=== PATIENT | male | born 1985 | race Caucasian/White ===

== ENCOUNTER 2016-11-04 01:52 | Emergency (ER) | payer OTHER ==
[~2016-11-04] VITALS: Ht 185.4 cm; Wt 68.1 kg
[2016-11-04 01:52] VITALS: Ht 185.4 cm; Wt 68.1 kg
[~2016-11-04 01:52] MED LIST: HYDR-4246 PO
--- OUTSIDE RECORDS SUMMARY | 2016-11-04 01:56 | XMS REPORT | Continuity of Care Document ---
Author Author [facility] Organization [facility] Address Unknown Phone Unavailable Support Name Relationship Address Phone YURIDIA KENNEDY Next Of Kin [address] [place] [address] Unavailable Insurance Providers Payer Name Policy Number Subscriber Name Relationship [facility] [id number] Sam Lara Ii 19 Self Problems No Known Problems or Medical conditions. Family History History Response Recorded Date/Time Hx Abdominal Surgery Y appendectomy and gall bladder removal 02/10/13 11:06pm HX Cerebrovascular Accident N 02/10/13 11:06pm Hx Seizures N 02/10/13 11:06pm Hx Angina N 02/10/13 11:06pm Hx Congestive Heart Failure N 02/10/13 11:06pm Hx Heart Attack N 02/10/13 11:06pm Hx Hypertension N 02/10/13 11:06pm Hx Chronic Obstructive Pulmonary Disease (COPD) N 02/10/13 11:06pm Hx Diabetes N 02/10/13 11:06pm Hx Cancer N 02/10/13 11:06pm Hx MRSA Y mrsa foot wound 03/01/09 02/10/13 11:06pm HX of Cardiac Surgeries N 02/10/13 11:06pm HX of Reproductive Surgeries N 02/10/13 11:06pm HX of Endocrine Surgeries N 02/10/13 11:06pm HX of Neurological Surgeries N 02/10/13 11:06pm HX of Genitourinary Surgeries N 02/10/13 11:06pm Infectious abscesses 05/17/11 7:11am Neurological head injury 05/17/11 7:11am Respiratory asthma 05/17/11 7:11am Social History History Response Recorded Date/Time Smoking Status Current every day smoker 02/10/13 11:06pm Hx Substance Use N 02/10/13 11:06pm Hx Alcohol Use Y 02/10/13 11:06pm Allergies, Adverse Reactions, Alerts Allergen Type Severity Reaction Last Updated iodine Adverse Reaction Unknown 02/10/13 aspirin Allergy Severe 02/10/13 Medications Medication Dose Units Route Sig Qty Days Trazodone Hcl 100 Mg PO HS Venlafaxine Hcl (Effexor) 37.5 Mg PO DAILY Prazosin Hcl (Minipress) 1 Mg PO DAILY Trazodone Hcl 100 Mg PO HS Venlafaxine Hcl (Effexor Xr) 150 Mg PO DAILY Multivit, Iron, Min #3, Fa ([place] Tablet) PO DAILY Immunizations Name Given Type Hx Influenza Vaccination Y 2007 H Hx Pneumococcal Vaccination Y 2007 H Hx Tetanus, Diptheria, Pertussis Y H Response Recorded Date/Time Status not known Unknown Results No Known Relevant Diagnostic Tests, Laboratory Data and/or Discharge Summary. Procedures Procedure Code Date RPR S/N/AX/GEN/TRNK 2.5CM/< 63150 01/26/09 REMOVAL OF TOE LESIONS 46478 03/16/09 THER/PROPH/DIAG IV INF INIT 01144 05/16/11 TX/PRO/DX INJ NEW DRUG ADDON 38256 05/16/11 Blood Culture 05/16/11 Gram Stain 03/01/09 Encounters Encounter Location Date/Time Departed Emergency Room [facility] 02/10/13 10:59pm
--- OUTSIDE RECORDS SUMMARY | 2016-11-04 01:56 | XMS REPORT | Continuity of Care Document ---
Author Author [facility] Organization [facility] Address Unknown Phone Unavailable Support Name Relationship Address Phone NOVEMBER, FARNAZ Cox DO Caregiver [address] [place] [address] Unavailable LATIA CANDELARIA FACS, MD Caregiver [address] [place] [address] [place] [address] Unavailable LATIA CANDELARIA FACS, MD Caregiver [address] [place] [address] [place] [address] Unavailable YURIDIA KENNEDY Next Of Kin [address] [place] [address] Insurance Providers Guarantor Quentin Lara Ii Address [address] [place] [address] Email DENIED/NO PORTAL Payer [facility] Policy Number [id number] Subscriber's Name Quentin Lara Ii Relationship 19 Self Advance Directives Directive Response Recorded Date/Time Ordered Resuscitation Status Full Code 05/12/16 4:11am Resuscitation Documents on File No 05/12/16 4:43am DPOA for Healthcare Only No 05/12/16 4:43am Living Will No 05/12/16 4:43am Chief Complaint and Reason for Visit Chief Complaint HERNIA PAIN Reason for Visit Incarcerated hernia Problems Active Problems Medical Problem Onset Date Status Incarcerated hernia Unknown Acute Medications Current Home Medications Medication Dose Units Route Directions Days Qty Instructions Start Date Hydrocodone/Acetaminophen (Whipple 5-325 Tablet) 5-325 Tablet 1-2 Tab Oral Every 5 Hours as needed for Pain 30 Tablet 05/12/16 Past Home Medications Medication Directions Ordered Status Duloxetine Hcl (Cymbalta) 20 Mg Capsule., 20 Mg Oral Daily 05/06/11 Discontinued Multivit, Iron, Min #3, Fa ([place] Tablet) 1 Tab Tablet, Oral Daily 03/16/09 Discontinued Prazosin Hcl (Minipress) 1 Mg Capsule, 1 Mg Oral Daily 05/16/11 Discontinued Trazodone Hcl 100 Mg Tablet, 100 Mg Oral Bedtime 02/10/13 Discontinued Trazodone Hcl 100 Mg Tablet, 100 Mg Oral Bedtime 05/16/11 Discontinued Venlafaxine Hcl (Effexor) 37.5 Mg Tablet, 37.5 Mg Oral Daily 03/10/12 Discontinued Venlafaxine Hcl (Effexor Xr) 150 Mg Cap.sr.24h, 150 Mg Oral Daily 05/16/11 Discontinued Social History Social History Problem Response Recorded Date/Time Onset Date Status Reason for Hospitalization HERNIA PAIN 05/13/2016 12:19pm Not Applicable Not Applicable Chewing Tobacco Status No 05/12/2016 2:57am Not Applicable Not Applicable Hx Substance Use No 05/12/2016 2:57am Not Applicable Not Applicable Hx Alcohol Use Yes 05/12/2016 2:57am Not Applicable Not Applicable Has the pt used tobacco in the last 12 months Yes 05/12/2016 4:47am Not Applicable Not Applicable Query Response Start Date Stop Date Smoking Status Current every day smoker Hospital Discharge Instructions Instructions: Care Instructions: I was in the hospital because (patient own words): "a hernia" Discharge Diet: TOLERATED Discharge Activity: INCREASE TOLERATED BE SURE TO GET UP AND WALK AROUND EVERY LITTLE BIT EVERY DAY Follow Up Appointments: CALL DR. CANDELARIA'S OFFICE @ [phone] TO SET UP FOLLOW UP APPOINTMENT Pending Lab / Results: No Pending Lab Patient Instructions: SEE HERNIA DISCHARGE PAGES Expected Signs/Symptoms: EXPECT TO FEEL SORE/HAVE PAIN FOR A COUPLE OF DAYS. Notify Physician If: YOU NOTICE SIGNS OF INFECTION: TEMP 101.5 OR GREATER, REDNESS AND/OR SWELLING AT INCISION SITE. GREEN OR FOUL SMELLING DRAINAGE COMING FROM INCISION SITE Pain Scale Utilized to Educate Patient: 0-10 Pain Scale Condition at time of discharge: Good Plan of Care Discharge Date 05/13/16 1:47pm Disposition 01 DISCHARGED HOME, SELF-CARE Instructions/Education Provided DI for Groin Hernia Prescriptions See Medication Section Additional Instructions/Education may shower in 24 hours, limit lifting to less than #25, return to clinic on May 22, call for appointment Care Plan and Goals See Discharge Instructions Section Functional Status Query Response Date Recorded Assistive Devices None May 12, 2016 5:21am Activity Limitations None May 12, 2016 5:21am Feeding Ability Independent May 12, 2016 5:21am Toileting Ability Independent May 12, 2016 5:21am Grooming Ability Independent May 12, 2016 5:21am Dressing Ability Independent May 12, 2016 5:21am Driving Ability Independent May 12, 2016 5:21am Housework Ability Independent May 12, 2016 5:21am Meal Preparation Ability Independent May 12, 2016 5:21am Stair Climbing Ability Independent May 12, 2016 5:21am Ability to complete ADL's impeded by No change May 12, 2016 5:21am Cognitive/Perceptual Impairments None May 12, 2016 5:21am Allergies, Adverse Reactions, Alerts Allergen Type Severity Reaction Status Last Updated Aspirin Allergy Severe Active 05/12/16 Immunizations Immunization Event Date Type Not Given Reason Dose Number Lot Number Chairman Ceo VIS Given Influenza, seasonal, injectable 05/12/16 Administered 1 [id number] Daric 03/09/14 Query Response on File Recorded Date/Time Hx Influenza Vaccination No 05/12/16 4:47am Hx Pneumococcal Vaccination No 05/12/16 4:47am Hx Tetanus, Diptheria, Pertussis Yes 02/10/13 11:06pm Hx Influenza Vaccination No 05/12/16 4:47am Hx Tetanus Diptheria Y A YEAR AGO 02/10/13 11:06pm Hx Tetanus, Diptheria, Pertussis Yes 02/10/13 11:06pm Influenza Vaccine Hx 05/12/16 05/12/16 4:28pm Vital Signs Acute Vital Signs Vital Response Date/Time Temperature (Fahrenheit) 96.5 deg F (96.8 - 99.1) 05/13/2016 12:50pm Temperature (Calculated Celsius) 35.03966 degrees C (36.0 - 37.3) 05/13/2016 12:50pm Temperature Source Oral 05/13/2016 12:50pm Pulse Rate (adult) 88 bpm (60 - 100) 05/13/2016 12:50pm Respiratory Rate 16 breaths/min (10 - 20) 05/13/2016 12:50pm O2 Sat by Pulse Oximetry 97 % (90 - 100) 05/13/2016 12:50pm Oxygen Delivery Method Room Air 05/13/2016 12:50pm Oxygen Delivery Method Room Air 05/12/2016 3:50pm Oxygen Flow Rate 2.00 L/min 05/12/2016 8:45am Blood Pressure 111/65 mm Hg 05/13/2016 12:50pm Blood Pressure Source Automatic Cuff 05/13/2016 12:50pm Height (Feet) 6 feet 05/12/2016 4:41am Height (Inches) 1.00 inches 05/12/2016 4:41am Weight (Kilograms) 75.000 kg 05/13/2016 7:30am Body Mass Index (BMI) 20.9 05/12/2016 4:41am Results Laboratory Results Test Name Result Units Flags Reference Collection Date/Time Result Date/ Time Comments White Blood Count 14.5 T/MM3 H 4.5-11.0 05/12/2016 3:05/12/2016 3: 17am Red Blood Count 5.64 M/MM3 4.50-5.90 05/12/2016 3:05/12/2016 3: 17am Hemoglobin 17.2 GM/DL 13.5-17.5 05/12/2016 3:05/12/2016 3:17am Hematocrit 50.3 % 41-53 05/12/2016 3:05/12/2016 3:17am Mean Corpuscular Volume 89.2 UM3 80-100 05/12/2016 3:05/12/2016 3: 17am Mean Corpuscular Hemoglobin 30.5 UUG 26-34 05/12/2016 3:2015 3:17am Mean Corpuscular Hemoglobin Concent 34.2 GM/DL 31-37 05/12/2016 3:05/12/2016 3:17am RDW Standard Deviation 43.7 FL 36.9-50.2 05/12/2016 3:05/12/2016 3 :17am Platelet Count 320 T/MM3 130-400 05/12/2016 3:05/12/2016 3:17am Mean Platelet Volume 10.4 UM3 9.4-12.4 05/12/2016 3:05/12/2016 3: 17am Prothromb Time International Ratio 0.93 L 0.99-1.21 05/12/2016 3:05/12/2016 4:29am THERAPUTIC RANGE=2.00-3.00 FOR ANTI-THROMBOSIS THERAPUTIC RANGE=2.50-3.50 FOR IMPLANTED VALVE Icterus Index < 2 0-7 05/12/2016 3:0905/12/2016 3:25am Chemistry Specimen Hemolysis < 15 0-25 05/12/2016 3:0905/12/2016 3 :25am 0-25: Specimen Exhibited No Hemolysis. Turbidity < 20 0-20 05/12/2016 3:09am 05/12/2016 3:25am Sodium Level 147 MEQ/L H 134-144 05/12/2016 3:0905/12/2016 3:25am Potassium Level 3.5 MEQ/L L 3.6-5 05/12/2016 3:09am 05/12/2016 3:25am Chloride Level 105 MEQ/L 98-107 05/12/2016 3:0905/12/2016 3:25am Carbon Dioxide Level 29 MEQ/L 22-30 05/12/2016 3:09am 05/12/2016 3: 25am Anion Gap 13 MEQ/L 5-15 05/12/2016 3:0905/12/2016 3:25am Blood Urea Nitrogen < 2.0 MG/DL L 9-05/12/2016 3:09am 05/12/2016 3: 25am Creatinine 0.7 MG/DL L 0.8-1.5 05/12/2016 3:0905/12/2016 3:25am Glomerular Filtration Rate Calc 132 05/12/2016 3:0905/12/2016 3: 25am Glucose Level 102 MG/DL 75-110 05/12/2016 3:0905/12/2016 3:25am Calcium Level 10.1 MG/DL 8.4-10.2 05/12/2016 3:09am 05/12/2016 3:25am Name: QUENTIN LARA II Unit #: [id number] : 1985 Sex: M Admit Date: 05/12/16 Loc / Svc: SRG Discharge Date: DIAGNOSTIC IMAGING REPORT Report #: [id number] [facility] MARLENI [place] Indication: ITS.REASON: Possible incarcerated hernia PROCEDURE: CT ABD/PELVIS W/CONTRAST ONLY: Encounter: Initial Comparison: None Technique: Axial CT images were performed through the abdomen and pelvis after the administration of intravenous contrast. Coronal and sagittal two-dimensional reformats. Contrast: Omnipaque 300 89 mL Findings: Calcified granulomas in the lingula. The liver appears normal. Gallbladder is surgically absent. Granulomas in the spleen. The pancreas and adrenal glands are within normal limits. Kidneys are normal. No abdominal or pelvic lymphadenopathy. Bladder is normal. Prostate and rectum are unremarkable. Colon is decompressed. Dilated small bowel in the central and right lower pelvis secondary to a large right inguinal hernia containing dilated fluid-filled loops of small bowel extending into the right hemiscrotum. One interesting and exiting loop is identified. There is some bowel wall thickening but no definite pneumatosis. No portal or mesenteric venous gas appreciated. Bone windows are unremarkable for age. Impression: Small bowel obstruction due to an incarcerated right inguinal hernia. Possible developing strangulation. No definite evidence of bowel necrosis currently. Surgical consultation is recommended. There is a preliminary report by [facility]. . Procedures Procedure Status Date Provider(s) Inguinal hernia repair, right Completed 05/12/16 LATIA CANDELARIA MD, CORINNA VIDES Encounters Encounter Location Arrival/Admit Date Discharge/Depart Date Attending Provider Admitted Inpatient [facility] 05/12/16 4:11am LATIA CANDELARIA FACS, MD Recent Diagnosis Incarcerated hernia
--- OUTSIDE RECORDS SUMMARY | 2016-11-04 01:56 | XMS REPORT | Continuity of Care Document ---
Author Author [facility] Address Unknown Phone Unavailable Allergies Active Description Code Type Severity Reaction Onset Reported/Identified Relationship to Patient Clinical Status Yes aspirin Drug Allergy N/A N/A 04/30/2013 Yes iodine Drug Allergy N/A N/A 04/30/2013 Medications Problems Date Dx Coded Attending Type Code Diagnosis Diagnosed By 04/30/2013 VAHID NEGRON APRN 724.2 LUMBAGO/ LOW BACK PAIN 04/30/2013 DIANA MARK MD 724.2 LUMBAGO/ LOW BACK PAIN 04/30/2013 VAHID NEGRON APRN 724.2 LUMBAGO/ LOW BACK PAIN 06/16/2013 DIANA MARK MD E880.9 ACCIDENTAL FALL ON OR FROM OTHER STAIRS OR STEPS 06/16/2013 VAHID NEGRON APRN E880.9 ACCIDENTAL FALL ON OR FROM OTHER STAIRS OR STEPS Procedures Code Description [place] [address] UA W/ CULTURE IF INDICATED 04/30/2013 01268 XRAY LUMBAR SPINE 2 OR 3 VIEWS 06/16/2013 55896 X-RAY EXAM OF SACRUM/COCCYX 06/16/2013 37923 URINE DRUG SCREEN (IN-HOUSE) 07/04/2013 75499 UA LONG DIP 07/04 Results Encounters ACCT No. Visit Date/Time Discharge Status Pt. Type Provider Facility Loc./Unit Complaint [id number] 07/04/2013 10:41:00 07/04/2013 23: 59:59 CLS Outpatient VAHID NEGRON APRN [id number] 06/16/2013 09:51:00 06/16/2013 23: 59:59 CLS Outpatient DIANA MARK MD [id number] 04/30/2013 17:26:00 04/30/2013 23: 59:59 CLS Outpatient VAHID NEGRON APRN
[2016-11-04 02:33] LABS: BASOPHILS % (AUTO) 0.2 % (0-2); EOSINOPHILS # (AUTO) 0.1 T/MM3 (0-0.5); EOSINOPHILS % (AUTO) 1.4 % (0-4); HCT - HEMATOCRIT 45.3 % (41-53); LYMPHOCYTES # (AUTO) 1.8 T/MM3 (1-4.8); LYMPHOCYTES % (AUTO) 28.4 % (23-45); MEAN CORPUSCULAR HGB 30.8 UUG (26-34); MEAN CORPUSCULAR HGB CONC(MCHC 35.3 GM/DL (31-37); MEAN CORPUSCULAR VOLUME 87.3 UM3 (80-100); MONOCYTES # (AUTO) 0.7 T/MM3 (0-0.8); MONOCYTES % (AUTO) 10.5 % (0-9.0); NEUTROPHILS #(AUTO)-ABSOLUTE 3.8 T/MM3 (1.8-7.7); NEUTROPHILS % (AUTO) 59.5 % (33-66); RED BLOOD COUNT 5.19 M/MM3 (4.50-5.90); WBC - WHITE BLOOD COUNT 6.4 T/MM3 (4.5-11.0)
--- NOTE | 2016-11-04 02:40 | ERPDOC ---
Departure Disposition Decision Date: Nov 04, 2016 Disposition Decision Time: 05:10 Disposition: 01 DISCHARGED HOME, SELF-CARE Impression Impression Impression: Primary Impression: Methamphetamine abuse Additional Impression: Anxiety Condition: Stable Seen By: Physician only Patient Instructions: Anxiety (ED), Methamphetamine Abuse (ED) Problems/Meds/Labs Reviewed?: Yes Medications reviewed and manag: Yes Additional Instructions: 1) DRINK PLENTY OF WATER AND CONSIDER ELECTROLYTE SOLUTION SUCH GATORADE OR POWERADE. 2) AVOID METHAMPHETAMINE 3) FOLLOW UP WITH [facility] OR PCP OF YOUR CHOICE FOR RE-EVALUATION IN NEXT 2-3 DAYS 4) TAKE POTASSIUM SUPPLEMENT 20 MeQ TAB ONE BY MOUTH THREE TIMES A DAY 5) AVOID ALCOHOL 6) AVOID ANY RECREATIONAL DRUGS Follow up care ordered?: Yes Mental Status: Alert, Oriented Scripts Potassium Chloride (Potassium Chloride) 20 Meq Tablet.er 20 MEQ PO TIDWM, #90 TAB 0 Refills Take 1 tablet, by mouth, THREE times a day with meals. Prov: DEVIN THEODORE MD 11/04/16 HPI - Psychosocial General Chief Complaint: Psychiatric Problems Stated Complaint: ANXIETY Time Seen by MD: 01:57 Source: patient, EMS HPI - Psychosocial Initial Comments 31 YO WM who presents to ER for anxiety and decreased level of consciousness. Patient was at [facility] when EMS called because patient was "having a panic attack" and then was "unresponsive." EMS administered Ativan 2 mg IV for anxiety and panic attack. Upon arrival in ER, patient is somnolent. Patient does awaken briefly to verbal stimuli. He denies taking any other drugs in the last 24 hours. Occurred At: other ([facility]) Onset: Rapid Associated Symptoms: anxiety, DENIES: suicidal ideation Allergies: Coded Allergies: aspirin (Verified Allergy, Severe, 05/12/16) Past History Past Medical History Respiratory: asthma Neurological: head injury Infectious: other Psychological: drug abuse, other (PTSD) Surgical History General: appendix, gallbladder Vaccines Hx Influenza Vaccination: No Hx Pneumococcal Vaccination: No Hx Tetanus Diptheria: Yes (A YEAR AGO) Hx Tetanus, Diptheria, Pertuss: Yes Social History Smoking Status: Current some day smoker Does patient use chewing tobac: No # of Packs/Tins per Day: 1 # of Years: 20 Second Hand Exposure: No Substance Use Type: unknown Social History Comments patient refuses to answer most questions Review of Systems Unable to Obtain ROS Due to: other (patient refuses to answer some questions) Constitutional Constitutional: DENIES: fever Cardiovascular Cardiac: DENIES: chest pain GI Upper Abdomen: DENIES: pain, vomiting Lower Abdomen: DENIES: diarrhea, pain General: DENIES: hematuria, pain Neurological General: DENIES: paralysis/paresis, seizures Physical Exam General General Body Habitus: disheveled Vitals and Pain First Documented Vital Signs Date Time Temp Pulse Resp B/P Pulse Ox O2 Delivery O2 Flow Rate FiO2 11/04/16 01:52 98.3 72 14 119/68 91 Room Air Weight: Kilograms: Height (feet): 6 Height (inches): 1.00 Triage Pain Scale: RN VS reviewed by Provider: Yes Normal Exams: Head: Normocephalic w/o trauma Eyes: Pupils are PERRLA w/ EOMI, No scleral icterus ENMT: No facial trauma, nasal exudates, pharyngeal erythema Chest/Resp: Clear all goodwin, with good airflow CV: Regular rate and rhythm, without murmur or gallop, Pulses 2+ all extremities, capillary refill, <2 seconds all ext., no pedal edema noted Abdomen: Bowel sounds positive, soft, non-tender, non-distended, no hepatosplenomegaly ENMT (brief) ENMT Brief: FOUND: TM clear, TM good light reflex, ear canals clear, mucosa moist Comments poor dentition Integumentary (brief) Integumentary Brief: FOUND: dry, warm Neurologic (brief) Neurological Brief: FOUND: CN w/o gross def to obs, motor-no gross deficits, sensory-no gross deficits Psychiatric (brief) Comments somnolent, responds to verbal but then falls asleep Differential Diagnoses Considering: Anxiety, Alcohol Intoxication, Other Intoxication, Ashwini Progress Results/Orders Orders Procedure Category Date Status Time Cbc W/Auto LAB 11/04/16 Complete Diff-Reflex Manual Cmp - Comprehensive LAB 11/04/16 Complete Metabolic Ua, Dip Wreflex LAB 11/04/16 Complete Microsc & Environmental Assistant 02:03 Drug Screen LAB 11/04/16 Complete Urine-Test At [facility] [place] 02:04 Ethanol LAB 11/04/16 Complete Iv Lock (Ed Only) EDM 11/04/16 Transmitted 02:03 EKG EKG 11/04/16 Logged Lab Results Laboratory Tests Test 11/04/16 02:28 11/04/16 04:15 White Blood Count 6.4T/MM3 Red Blood Count 5.19M/MM3 Hemoglobin 16.0GM/DL Hematocrit 45.3% Mean Corpuscular Volume 87.3UM3 Mean Corpuscular Hemoglobin 30.8UUG Mean Corpuscular Hemoglobin Concent 35.3GM/DL RDW Standard Deviation 39.6FL Platelet Count 288T/MM3 Mean Platelet Volume 11.0UM3 Immature Granulocyte % (Auto) 0.0% Neutrophils (%) (Auto) 59.5% Lymphocytes (%) (Auto) 28.4% Monocytes (%) (Auto) 10.5% Eosinophils (%) (Auto) 1.4% Basophils (%) (Auto) 0.2% Absolute Immature Granulocyte (auto 0.00T/MM3 Absolute Neutrophils (auto) 3.8T/MM3 Absolute Lymphocytes (auto) 1.8T/MM3 Absolute Monocytes (auto) 0.7T/MM3 Absolute Eosinophils (auto) 0.1T/MM3 Absolute Basophils (auto) 0.0T/MM3 Turbidity < 20 Sodium Level 146MEQ/L Potassium Level 2.8MEQ/L Chloride Level 105MEQ/L Carbon Dioxide Level 28MEQ/L Anion Gap 13MEQ/L Blood Urea Nitrogen 5.0MG/DL Creatinine 0.8MG/DL Glomerular Filtration Rate Calc 114 BUN/Creatinine Ratio 6RATIO Glucose Level 102MG/DL Calculated Osmolality 278MOSM/KG Calcium Level 10.0MG/DL Total Bilirubin 1.30MG/DL Icterus Index < 2 Aspartate Amino Transf (AST/SGOT) 31U/L Alanine Aminotransferase (ALT/SGPT) 36U/L Alkaline Phosphatase 71U/L Total Protein 7.5G/DL Albumin 4.3G/DL Globulin 3.2G/DL Albumin/Globulin Ratio 1.3RATIO Chemistry Specimen Hemolysis < 15 Alcohol, Quantitative <10MG/DL Urine Collection Type Voided-not cc-midstr Urine Color Yellow Urine Turbidity Clear Urine pH 7.5 Urine Specific [place] 1.010 Urine Protein Negative Urine Glucose (UA) Negative Urine Ketones Negative Urine Blood Negative Urine Nitrite Negative Urine Bilirubin Negative Urine Urobilinogen 0.2EU/DL Urine Leukocyte Esterase Negative Urinalysis Comment Microscopic not ind. Urine Opiates Screen NegativeNG/ML Urine Oxycodone Screen NegativeNG/ML Urine Methadone Screen NegativeNG/ML Urine Propoxyphene Screen NegativeNG/ML Urine Barbiturates Screen NegativeNG/ML Urine Tricyclic Antidepressants NegativeNG/ML Urine Phencyclidine Screen NegativeNG/ML Urine Amphetamines Screen PositiveNG/ML Urine Methamphetamines Screen PositiveNG/ML Urine Benzodiazepines Screen NegativeNG/ML Urine Cocaine Screen NegativeNG/ML Urine Cannabinoids Screen NegativeNG/ML Urine Drug Screen Confirmation Sent out Urine Drug Screen Information Pending EKG EKG : Rate: 60-100 [place]: right (borderline) QRS: normal ST/T: non-specific changes Interpreted by: signing physician DEVIN THEODORE MD Nov 04, 2016 02:40
[2016-11-04 02:43] LABS: ALBUMIN 4.3 G/DL (3.5-5.0); ALBUMIN/GLOBULIN RATIO 1.3 RATIO (1.1-2.2); ALKALINE PHOSPHATASE 71 U/L (38-126); ALT (SGPT) 36 U/L (21-72); ANION GAP 13 MEQ/L (5-15); AST (SGOT) 31 U/L (17-59); BUN/CREATININE RATIO 6 RATIO (6-26); CHLORIDE 105 MEQ/L (98-107); CO2 - CARBON DIOXIDE 28 MEQ/L (22-30); CREATININE 0.8 MG/DL (0.8-1.5); ETHANOL <10 MG/DL (<10); GLOMERULAR FILTRATION RATE 114; GLUCOSE 102 MG/DL (75-110); SODIUM 146 MEQ/L (134-144); TOTAL PROTEIN 7.5 G/DL (6.3-8.2)
[2016-11-04 03:14] LABS: POTASSIUM 2.8 MEQ/L (3.6-5)
[2016-11-04] MEDS ORDERED: NO ROUTINE MEDS (04:12)
[2016-11-04 04:23] LABS: BLOOD, URINE NEGATIVE (NEGATIVE); COLOR,URINE YELLOW (YELLOW); LEUKOCYTE ESTERASE ,URINE NEGATIVE (NEGATIVE); NITRITE,URINE NEGATIVE (NEGATIVE); UROBILINOGEN,URINE 0.2 EU/DL (NORMAL)
[2016-11-04 04:52] LABS: AMPHETAMINE SCREEN,URINE POSITIVE; BARBITURATE SCREEN,URINE NEGATIVE; BENZODIAZEPINES SCREEN,URINE NEGATIVE; CANNABINOID SCREEN,URINE NEGATIVE; COCAINE SCREEN,URINE NEGATIVE; METHADONE SCREEN, URINE NEGATIVE; METHAMPHETAMINE SCREEN, URINE POSITIVE; OPIATE SCREEN,URINE NEGATIVE; PHENCYCLIDINE SCREEN,URINE NEGATIVE; TRICYCLIC ANTIDEPRESSANT,URINE NEGATIVE
[2016-11-04] MEDS ORDERED: POTA-81 PO (05:18)
--- NOTE | 2016-11-04 05:28 | NUR ---
EKG EKG OBTAINED
--- NOTE | 2016-11-04 06:30 | NUR ---
ASSESSMENT PT REMAINS VERY DROWSY. WON'T FOLLOW COMMANDS
--- NOTE | 2016-11-04 07:03 | NUR ---
ASSESSMENT PT IS AROUSING & FOLLOWING COMMANDS NOW
--- NOTE | 2016-11-04 07:05 | NUR ---
PHONE CONTACT MADE. MESSAGE LEFT
--- NOTE | 2016-11-04 07:25 | NUR ---
PHONE CALLED MOTHER AGAIN. LEFT MESSAGE
--- NOTE | 2016-11-04 07:34 | NUR ---
amadou ha gave information: exjohny, , Mikayla...voicemail left
--- OUTSIDE RECORDS SUMMARY | 2016-11-04 07:36 | XMS REPORT | Continuity of Care Document ---
Author Author [facility] Organization [facility] Address Unknown Phone Unavailable Support Name Relationship Address Phone YURIDIA KENNEDY Next Of Kin [address] [place] [address] Unavailable Insurance Providers Payer Name Policy Number Subscriber Name Relationship [facility] [id number] Sam Lara Ii 19 Self Problems No [...] Procedures Procedure Code Date RPR S/N/AX/GEN/TRNK 2.5CM/< 29591 01/26/09 REMOVAL OF TOE LESIONS 06335 03/16/09 THER/PROPH/DIAG IV INF INIT 47313 05/16/11 TX/PRO/DX INJ NEW DRUG ADDON 77667 05/16/11 Blood Culture 05/16/11 Gram Stain 03/01/09 Encounters Encounter Location Date/Time Departed Emergency Room [facility] 02/10/13 10:59pm
--- OUTSIDE RECORDS SUMMARY | 2016-11-04 07:36 | XMS REPORT | Continuity of Care Document ---
Author Author [facility] Address Unknown Phone Unavailable Allergies Active Description [...] Procedures Code [place] [address] UA W/ CULTURE IF INDICATED 04/30/2013 21151 XRAY LUMBAR SPINE 2 OR 3 VIEWS 06/16/2013 47250 X-RAY EXAM OF SACRUM/COCCYX 06/16/2013 84464 URINE DRUG SCREEN (IN-HOUSE) 07/04/2013 59518 UA LONG DIP 07/04 Results Encounters ACCT No. Visit Date/Time Discharge Status Pt. Type Provider Facility Loc./Unit Complaint [id number] 07/04/2013 10:41:00 07/04/2013 23: 59:59 CLS Outpatient VAHID NEGRON APRN [id number] 06/16/2013 09:51:00 06/16/2013 23: 59:59 CLS Outpatient DIANA MARK MD [id number] 04/30/2013 17:26:00 04/30/2013 23: 59:59 CLS Outpatient VAHID NEGRON APRN
--- NOTE | 2016-11-04 09:20 | NUR ---
RM PT MOVED FROM ER RM B TO RM 5. 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
--- NOTE | 2016-11-04 09:23 | NUR ---
ROOM CHANGE TO RM 5 PER CART
--- NOTE | 2016-11-04 09:40 | NUR ---
RIDE MOTHER CALLED TO SAY SHE IS TRYING TO GET RIDE HOME FOR PT
[2016-11-04 10:00] VITALS: BP 110/76; PULSE 71; RESP 14; TEMP 98.3; O2SAT 97
== END 2016-11-04 10:01 | disposition home or self-care (01) ==
LOC: ED 01:52
DX: F41.9 Anxiety disorder, unspecified (principal); F15.10 Other stimulant abuse, uncomplicated
CPT/HCPCS: 36415; 51701; 80053; 80306; 80307; 81003; 85025; 93005